=== PATIENT | female | born 1980 | race Caucasian/White ===

== ENCOUNTER 2017-04-19 10:00 | Day surgery (SDC) | payer BC ==
[~2017-04-19] VITALS: Ht 162.6 cm; Wt 133.8 kg
[~2017-04-19 10:00] MED LIST: CEFAZOLIN 1 GM IVPB PREMIX 50 ML IV ONE
[2017-04-19] MEDS ORDERED: IOHEXOL 50 ML IV ONE (12:16)
[2017-04-19] MEDS ORDERED: GLYCOPYRROLATE 0.2 MG/ML VIAL IJ ONE (12:20)
[2017-04-19] MEDS ORDERED: ONDANSETRON HCL 4 MG/2 ML VIAL IVP ONE (12:20)
[2017-04-19] MEDS ORDERED: FLUMAZENIL 0.1 MG/ML IVP ONE (12:20)
[2017-04-19] MEDS ORDERED: MIDAZOLAM HCL 5 MG/5 ML VIAL IVP ONE (12:20)
[2017-04-19] MEDS ORDERED: SEVOFLURANE 15 MIN GAS INH ONE (12:20)
[2017-04-19] MEDS ORDERED: fentaNYL CITRATE 250 MCG/5 ML AMP IV ONE (12:20)
[2017-04-19] MEDS ORDERED: ROCURONIUM BROMIDE 10 MG/ML (ZEMURON) IV ONE (12:20)
[2017-04-19] MEDS ORDERED: NEOSTIGMINE METHYLSULFATE 1 MG/ML, 10 ML VIAL IVP ONE (12:20)
[2017-04-19] MEDS ORDERED: PROPOFOL 200MG/ 20ML VIAL (DIPRIVAN) IV ONE (12:20)
[2017-04-19] MEDS ORDERED: LR 1,000 ML IV SCH (13:37)
[2017-04-19] MEDS ORDERED: MORPHINE 4 MG/ML INJ. SYRINGE IVP PRN ×3 (13:45)
[2017-04-19] MEDS ORDERED: METOCLOPRAMIDE HCL 10 MG/2 ML VIAL IVP PRN (13:45)
[2017-04-19] MEDS ORDERED: D5/0.45 NS 1,000 ML IV SCH (14:14)
[2017-04-19] MEDS ORDERED: HYDROmorphone 1 MG INJ. 1 MG/ML AMPUL IVP PRN (14:15)
[2017-04-19] MEDS ORDERED: HYDROcodone/ACETAMIN 5-325 MG TAB (NORCO/ VICODIN) PO PRN ×2 (14:15)
[2017-04-19] MEDS ORDERED: METOCLOPRAMIDE HCL 10 MG/2 ML VIAL IVP ONE ×2 (14:20→14:35)
[2017-04-19] MEDS ORDERED: METOCLOPRAMIDE HCL 10 MG/2 ML VIAL ONE (14:23)
[2017-04-19] MEDS ORDERED: MORPHINE 4 MG/ML INJ. SYRINGE IVP ONE (15:06)
[2017-04-19] MEDS ORDERED: MORPHINE 4 MG/ML INJ. SYRINGE ONE (15:06)
[2017-04-19] MEDS ORDERED: HYDROcodone/ACETAMIN 5-325 MG TAB (NORCO/ VICODIN) ONE (15:48)
[2017-04-19 17:07] VITALS: BP_SYST 126
== END 2017-04-19 17:05 | disposition home or self-care (01) ==
LOC: SDS 10:00
PROVIDERS: ATTEND Colon & Rectal Surgery
DX: K80.12 Calculus of gallbladder with acute and chronic cholecystitis without obstruction (principal); E66.01 Morbid (severe) obesity due to excess calories; K21.9 Gastro-esophageal reflux disease without esophagitis
CPT/HCPCS: 47563; 76000; 88304; C1727; C1758; J0690; J2250; J2270; J2405; J2704; J2710; J2765; J3010; J3490 ×2; J7120; Q9967